=== PATIENT | female | born 1990 | race Caucasian/White ===

== ENCOUNTER 2017-05-23 20:24 | Observation (INO) | payer BC ==
[2017-05-23] MEDS ORDERED: fentaNYL 100 MCG/2 ML INJ IVP ONE (20:52)
[2017-05-23] MEDS ORDERED: ONDANSETRON 4 MG/2 ML VIAL IVP ONE (20:52)
[2017-05-23] MEDS ORDERED: NS 1,000 ML IV ONE (20:52)
--- NOTE | 2017-05-23 20:58 | EDPHY ---
H & P Time Seen by Provider: 05/23/17 20:45 HPI/ROS: CHIEF COMPLAINT: Abdominal pain HISTORY OF PRESENT ILLNESS: The patient is a 26-year-old female who presents emergency department right lower quadrant abdominal pain. She noticed her pain yesterday. It was mild cramping sensation. Today it slowly worsened. It has been persistent and it does not radiate. She describes it as moderate. She has had no vaginal discharge. She has an IUD in place. She denies any dysuria or frequency. No hematuria. No flank pain. REVIEW OF SYSTEMS: My complete review of systems is negative except as mentioned in the HPI. Past Medical/Surgical History: Colon polyps, UTI Past surgical history: Negative Social history: The patient smokes marijuana. She uses alcohol occasionally Smoking Status: Never smoked Physical Exam: Vitals noted. Afebrile. GENERAL: Well-appearing, in no acute distress, alert. HEENT: Eyes normal to inspection, normal pharynx, no signs of dehydration. NECK: No thyromegaly, no lymphadenopathy, supple. RESPIRATORY: Clear to auscultation bilaterally, no rales, rhonchi or wheezing. CVS: Regular rate and rhythm, no rubs, murmurs, or gallops. ABDOMEN: Soft, right lower quadrant tenderness to palpation with no rebound or guarding, nondistended, no organomegaly. No palpable mass. BACK: Normal to inspection, no CVA tenderness. SKIN: Normal color, no rash, warm, dry. No pallor. EXTREMITIES: No pedal edema, no calf tenderness, no Homans sign or cords, no joint swelling. NEURO/PSYCH: Alert and oriented, normal mood and affect, normal motor sensory exam. Constitutional: Initial Vital Signs Temperature (C) 36.6 C 05/23/17 20:25 Heart Rate 94 05/23/17 20:25 Respiratory Rate 16 05/23/17 20:25 Blood Pressure 130/80 H 05/23/17 20:25 O2 Sat (%) 99 05/23/17 20:25 O2 Delivery Mode Room Air Allergies/Adverse Reactions: Sulfa (Sulfonamide Antibiotics) Allergy (Verified 05/23/17 20:29) Home Medications: Medication Instructions Recorded NK [No Known Home Meds] 05/23/17 Medical Decision Making ED Course/Re-evaluation: In the emergency department I discussed possible etiologies with the patient. I answered all her questions. IV was placed. Laboratory studies were obtained. Patient was given fentanyl 50 mcg IV for pain control. She is given Zofran 4 mg IV for nausea. An ultrasound of the right lower quadrant and pelvis was ordered. The patient's white count is mildly elevated at 11. The patient's chemistry panel is unremarkable. is negative. UA did not show any signs of infection. 2155: I reviewed the ultrasound images with Dr. Alvaro Colón. Patient has a small ovarian cyst on the right. No torsion. The patient has a positive appendicitis. Patient was given Invanz 1 g IV. I discussed the case with Dr. Rodriguez who will admit. Differential Diagnosis: My differential includes but is not limited to ovarian cyst, ovarian torsion, , ectopic , appendicitis, volvulus, intussusception, hernia, urinary tract infection pyelonephritis, kidney stone - Data Points Laboratory Results: Laboratory Results 05/23/17 20:40 05/23/17 20:40 05/23/17 05/23/17 05/23/17 20:40 20:40 20:40 WBC 11.13 10^3/uL H 10^3/uL (3.80-9.50) RBC 5.23 10^6/uL 10^6/uL (4.18-5.33) Hgb 15.2 g/dL g/dL (12.6-16.3) Hct 43.6 % % (38.0-47.0) MCV 83.4 fL fL (81.5-99.8) MCH 29.1 pg pg (27.9-34.1) MCHC 34.9 g/dL g/dL (32.4-36.7) RDW 13.3 % % (11.5-15.2) Plt Count 208 10^3/uL 10^3/uL (150-400) MPV 10.7 fL fL (8.7-11.7) Neut % (Auto) 79.1 % H % (39.3-74.2) Lymph % (Auto) 12.3 % L % (15.0-45.0) [place] % (Auto) 7.5 % % (4.5-13.0) Eos % (Auto) 0.7 % % (0.6-7.6) Baso % (Auto) 0.1 % L % (0.3-1.7) Nucleat RBC Rel Count 0.0 % % (0.0-0.2) Absolute Neuts (auto) 8.81 10^3/uL H 10^3/uL (1.70-6.50) Absolute Lymphs (auto) 1.37 10^3/uL 10^3/uL (1.00-3.00) Absolute Monos (auto) 0.83 10^3/uL H 10^3/uL (0.30-0.80) Absolute Eos (auto) 0.08 10^3/uL 10^3/uL (0.03-0.40) Absolute Basos (auto) 0.01 10^3/uL L 10^3/uL (0.02-0.10) Absolute Nucleated RBC 0.00 10^3/uL 10^3/uL (0-0.01) Immature Gran % 0.3 % % (0.0-1.1) Immature Gran # 0.03 10^3/uL 10^3/uL (0.00-0.10) Sodium 141 mEq/L mEq/L (135-145) Potassium 4.1 mEq/L mEq/L (3.5-5.2) Chloride 108 mEq/L mEq/L (97-110) Carbon Dioxide 21 mEq/l L mEq/l (22-31) Anion Gap 12 mEq/L mEq/L (8-16) BUN 10 mg/dL mg/dL (7-23) Creatinine 0.7 mg/dL mg/dL (0.6-1.0) Estimated GFR > 60 Glucose 89 mg/dL mg/dL (70-100) Calcium 10.1 mg/dL mg/dL (8.5-10.4) Beta HCG, Qual NEGATIVE Urine Color Urine Appearance Urine pH Ur Specific [place] Urine Protein Urine Ketones Urine Blood Urine Nitrate Urine Bilirubin Urine Urobilinogen Ur Leukocyte Esterase Urine RBC Urine WBC Ur Epithelial Cells Urine Bacteria Urine Glucose 05/23/17 20:32 WBC RBC Hgb Hct MCV MCH MCHC RDW Plt Count MPV Neut % (Auto) Lymph % (Auto) [place] % (Auto) Eos % (Auto) Baso % (Auto) Nucleat RBC Rel Count Absolute Neuts (auto) Absolute Lymphs (auto) Absolute Monos (auto) Absolute Eos (auto) Absolute Basos (auto) Absolute Nucleated RBC Immature Gran % Immature Gran # Sodium Potassium Chloride Carbon Dioxide Anion Gap BUN Creatinine Estimated GFR Glucose Calcium Beta HCG, Qual Urine Color PALE YELLOW Urine Appearance CLEAR Urine pH 8.0 H (5.0-7.5) Ur Specific [place] 1.001 L (1.002-1.030) Urine Protein NEGATIVE (NEGATIVE) Urine Ketones NEGATIVE (NEGATIVE) Urine Blood NEGATIVE (NEGATIVE) Urine Nitrate NEGATIVE (NEGATIVE) Urine Bilirubin NEGATIVE (NEGATIVE) Urine Urobilinogen NEGATIVE EU EU (0.2-1.0) Ur Leukocyte Esterase NEGATIVE (NEGATIVE) Urine RBC 1-3 /hpf /hpf (0-3) Urine WBC NONE SEEN /hpf /hpf (0-3) Ur Epithelial Cells TRACE /lpf /lpf (NONE-1+) Urine Bacteria TRACE /hpf H /hpf (NONE SEEN) Urine Glucose NEGATIVE (NEGATIVE) Medications Given: Discontinued Medications Fentanyl (Sublimaze) 50 mcg IVP EDNOW ONE Stop: 05/23/17 20:53 Last Admin: 05/23/17 21:01 Dose: 50 mcg Sodium Chloride (Ns) 1,000 mls @ 0 mls/hr IV ONCE ONE; Wide Open PRN Reason: Protocol Stop: 05/23/17 20:53 Last Admin: 05/23/17 21:00 Dose: 1,000 mls Ondansetron HCl (Zofran) 4 mg IVP EDNOW ONE Stop: 05/23/17 20:53 Last Admin: 05/23/17 21:01 Dose: 4 mg Departure - Departure Disposition: [facility] Inpatient Acute Clinical Impression: Abdominal pain Qualifiers: Abdominal location: right lower quadrant Qualified Code(s): R10.31 - Right lower quadrant pain Appendicitis Qualifiers: Appendicitis type: acute appendicitis Acute appendicitis type: other Qualified Code(s): K35.89 - Other acute appendicitis Condition: Good Instructions: Abdominal Pain (ED) Referrals: NONE *PRIMARY CARE P,. [Primary Care Provider] - As per Instructions
[2017-05-23 21:03] LABS: PLATELET COUNT 208 10^3/uL (150-400)
[2017-05-23] MEDS ORDERED: ERTAPENEM 1 GM VIAL IVP ONE (21:59)
[2017-05-23] MEDS ORDERED: LR 1,000 ML IV ONE (23:06)
--- NOTE | 2017-05-23 23:57 | PDANEPAE ---
ANE History of Present Illness 26 year old female for [employer]. ANE Past Medical History - Cardiovascular History Hx Hypertension: No Hx Arrhythmias: No Hx Chest Pain: No Hx Coronary Artery / Peripheral Vascular Disease: No Hx CHF / Valvular Disease: No Hx Palpitations: No - Pulmonary History Hx COPD: No Hx Asthma/Reactive Airway Disease: No Hx Recent Upper Respiratory Infection: No Hx Oxygen in Use at Home: No Hx Sleep Apnea: No - Endocrine History Hx Diabetes: No Hypothyroid: No Hyperthyroid: No Obesity: no - Renal History Hx Renal Disorders: No - Liver History Hx Hepatic Disorders: No - Neurological & Psychiatric Hx Hx Neurological and Psychiatric Disorders: No - Cancer History Hx Cancer: No - Congenital Disorder History Hx Congenital Disorders: No - GI History GERD: no Hx Gastrointestinal Disorders: No - Chronic Pain History Chronic Pain: No ANE Review of Systems Review of systems is: negative Review of Systems: - Exercise capacity Exercise capacity: >=4 METS ANE Patient History - Allergies Allergies/Adverse Reactions: Sulfa (Sulfonamide Antibiotics) Allergy (Verified 05/23/17 22:08) Other-Enter Comments - Home Medications Home medications: home medication list seen and reviewed Home Medications: Levonorgestrel [Kyleena] 1 each IY ONCE 05/23/17 [Last Taken Unknown] Multivitamins [Multivitamin (*)] 1 each PO DAILY 05/23/17 [Last Taken 05/14/17 08:00] - NPO status NPO Status: no food or drink >8 hours NPO Since - Liquids (Date): 05/23/17 NPO Since - Liquids (Time): 21:30 NPO Since - Solids (Date): 05/23/17 NPO Since - Solids (Time): 17:30 - Anes Hx Anes Hx: no prior problems - Smoking Hx Smoking Status: Never smoked Marijuana use: Yes - Alcohol Use Alcohol Use: Rarely - Family Anes Hx Family Anes Hx: neg - N/A ANE Labs/Vital Signs - Labs Result Diagrams: 05/23/17 20:40 05/23/17 20:40 - Vital Signs Vital Signs: reviewed preoperatively; see RN documention for details Blood Pressure: 117/74 Heart Rate: 62 Respiratory Rate: 16 O2 Sat (%): 98 Height: 160.02 cm Weight: 52.163 kg ANE Physical Exam - Airway Neck exam: FROM Mallampati Score: Class 1 Mouth exam: normal dental/mouth exam - Pulmonary Pulmonary: no respiratory distress - Cardiovascular Cardiovascular: regular rate and rhythym - ASA Status ASA Status: I ANE Anesthesia Plan Anesthesia Plan: general endotracheal anesthesia Total IV Anesthesia: No
[2017-05-23] MEDS ORDERED: PROPOFOL/EMULSION 500 MG/50 ML BOTTLE IV ONE (23:59)
[2017-05-24] MEDS ORDERED: BUPIVACAINE 0.5% 30 ML SDV ONE (00:01)
[2017-05-24] MEDS ORDERED: ROCURONIUM 50 MG/5 ML VIAL ONE (00:02)
[2017-05-24] MEDS ORDERED: LIDOCAINE 2% 5 ML SDV ONE (00:02)
[2017-05-24] MEDS ORDERED: fentaNYL 100 MCG/2 ML INJ ONE (00:02)
[2017-05-24] MEDS ORDERED: ONDANSETRON 4 MG/2 ML VIAL ONE (00:22)
[2017-05-24] MEDS ORDERED: DEXAMETHASONE 4 MG/ML VIAL ONE (00:22)
[2017-05-24] MEDS ORDERED: PROPOFOL/EMULSION 500 MG/50 ML BOTTLE IV ONE (00:25)
[2017-05-24] MEDS ORDERED: SUGAMMADEX SODIUM 200 MG/2 ML VIAL IVP ONE (00:32)
[2017-05-24] MEDS ORDERED: KETOROLAC 30 MG/1 ML SDV ONE (00:34)
[2017-05-24] MEDS ORDERED: fentaNYL 100 MCG/2 ML INJ IVP PRN (00:40)
[2017-05-24] MEDS ORDERED: HYDROmorphONE/DILAUDID 1 MG/ML INJ IVP PRN (00:40)
[2017-05-24] MEDS ORDERED: NALOXONE HCL 0.4 MG/ML INJ IVP PRN (00:40)
[2017-05-24] MEDS ORDERED: MEPERIDINE 25 MG/ML SYR IVP PRN (00:40)
[2017-05-24] MEDS ORDERED: LR 500 ML IV PRN (00:40)
[2017-05-24] MEDS ORDERED: HYDROCODONE/APAP 5/325 TAB PO PRN ×2 (00:40→00:52)
[2017-05-24] MEDS ORDERED: ONDANSETRON 4 MG/2 ML VIAL IVP PRN ×2 (00:40→00:52)
--- NOTE | 2017-05-24 00:53 | POSTOPPROG ---
Post Op Note Date of Operation: 05/24/17 Surgeon: Lo Rodriguez Anesthesiologist: wilder Anesthesia: GET(General Endotracheal) Pre-op Diagnosis: acute appendicitis Post-op Diagnosis: same Indication: 26 yo with acute appy Procedure: lap appy Findings: inflamed appendix Inf/Abcess present in the surg proc area at time of surgery?: No EBL: Minimal Specimen(s): appendix
--- NOTE | 2017-05-24 01:05 | POSTANESTH ---
Post Anesthetic Evaluation Cardiovascular Status: Normal, Stable, Similar to Pre-Op Cond Respiratory Status: Normal, Stable, Similar to Pre-op Cond. Level of Consciousness/Mental Status: Can Participate in Eval, Alert and Oriented Pain Control: Adequate, Prn Tx Ordered Nausea/Vomiting Control: Adequate, Prn Tx Ordered Complications Possibly Related to Anesthesia: None Noted
--- NOTE | 2017-05-24 01:25 | GHP ---
[f rep st] HISTORY AND PHYSICAL DATE OF ADMISSION: 05/23/2017 REFERRING PHYSICIAN: Debbie Ngo MD CHIEF COMPLAINT: Appendicitis. HISTORY OF PRESENT ILLNESS: The patient is a 26-year-old woman, who has had abdominal pain for 24-48 hours. Initially, it was mild and cramping associated with bloating, and she thought she had to pas s gas. Today, it became worse and became more sharp in the right lower quadrant. She presented to [facility] emergency room. Her white count was elevated. Ultrasound showed a thickened appendix. PAST MEDICAL HISTORY: None. PAST SURGICAL HISTORY: None. SOCIAL HISTORY: She is a massage therapist. She uses alcohol on occasion. She smokes marijuana. S he does not use tobacco products. FAMILY HISTORY: Noncontributory. REVIEW OF SYSTEMS: A 10-point review of systems negative except per HPI. PHYSICAL EXAMINATION: VITAL SIGNS: 36.6, 94, 130/80, 16, 99%. GENERAL: Pleasant, thin, well-rocky shed woman sitting on exam table. HEENT: Normocephalic. No gross hearing deficits. Mucous membran es moist. Pupils equal and round. No scleral icterus. LUNGS: Clear to auscultation bilaterally. No increased work of breathing. CARDIAC: Regular rate. No peripheral edema. ABDOMEN: Distended. Bowel sounds present. She is tender in the right lower quadrant. MUSCULOSKELETAL: Normal nails. SKIN: Warm and dry. PSYCH: Mood and affect normal. NEURO: Grossly intact. LABORATORY DATA: Results reviewed. I personally reviewed the results of her lab work, as well as he r ultrasound. IMPRESSION AND PLAN: The patient is a 26-year-old with acute appendicitis. I will take her to the perating room for a laparoscopic appendectomy. The risks and benefits, including, but not limited to , stroke, heart attack, , blood clots, infection, bleeding, damage to bowel or bladder were disc ussed. She had her questions answered to her satisfaction and signed the informed consent. /[id number]/MODL
[2017-05-24 02:16] VITALS: RESP 16
[2017-05-24] MEDS ORDERED: LR 1,000 ML IV ONE (02:30)
--- NOTE | 2017-05-24 04:45 | GOP ---
[f rep st] OPERATIVE REPORT DATE OF OPERATION: 05/24/2017 SURGEON: Lo Rodriguez MD ANESTHESIA: General. ANESTHESIOLOGIST: Jagdish Sifuentes MD. PREOPERATIVE DIAGNOSIS: Acute appendicitis. POSTOPERATIVE DIAGNOSIS: Acute appendicitis. PROCEDURE PERFORMED: Laparoscopic appendectomy. FINDINGS: Inflamed appendix. SPECIMENS: Appendix. ESTIMATED BLOOD LOSS: 5 cc. INDICATIONS: The patient is a 26-year-old with abdominal pain, inflamed appendix, and elevated white blood cell count. DESCRIPTION OF PROCEDURE: Patient was brought into the operating room, placed supine on the table, a nd general anesthesia was administered. Her abdomen was prepped and draped in the usual sterile [facility] ion. I infiltrated all sites with 0.5% Marcaine prior to making incisions. I made an incision at he r umbilicus. I elevated it. I inserted the Veress needle. It passed the hanging drop test. Her ab domen insufflated easily to a pressure of 15 mmHg. I placed a 5 mm trocar with a camera at this site . There were no injuries from Veress needle placement. Under direct vision, I placed a 5 mm suprapu bic trocar and a 10 mm trocar in the left lower quadrant. I elevated her appendix. I had to divide some omentum over it. I divided the mesoappendix with the Harmonic Scalpel. There was also 1 attach ment to the small bowel that I divided with scissors. I then divided the base of the appendix with a n Endo-MYRIAM 45 white load. I placed the appendix in an EndoCatch bag and retrieved it via the 10 mm t rocar. It had to be dilated slightly to accommodate the enlarged appendix. Staple line was intact. There were no injuries noted. I removed the trocars and allowed the abdomen to desufflate. The fas tabby at the 10 mm trocar site was closed with 0 Vicryl. Skin closed with 4-0 Monocryl. Dermabond christian lied. She was awakened in the operating room, extubated, transferred to PACU in stable condition. /[id number]/MODL
[2017-05-24 08:32] VITALS: BP 102/61; PULSE 51; TEMP 97; O2SAT 96
--- NOTE | 2017-05-24 11:46 | SOAPPROG ---
SOAP Progress Note Assessment/Plan: Assessment/plan: 26yo F s/p lap appy for acute appendicitis Path pending Pain controlled without Rx Passnig flatus Tolerating regular diet Dispo: DC home today. F/u in 2 weeks. Avoid heavy lifting, pushing or pulling x 2 weeks. Call with worsening symptoms, question or concerns S: feeling well this morning. pain resolved. O: Lying in bed, comfortable, no acute distress No increased work of breathing Positive bowel sounds throughout, soft, nondistended, nontender. Incisions clean, dry and intact without evidence of infection Objective: Vital Signs Temp Pulse Resp BP Pulse Ox 36.1 C 51 L 16 102/61 96 05/24/17 08:00 05/24/17 08:00 05/24/17 08:00 05/24/17 08:00 05/24/17 08:00 05/23/17 05/24/17 05/25/17 05:59 05:59 05:59 Intake Total 1770 Output Total 10 300 Balance 1760 -300 ICD10 Worksheet Patient Problems: Problems Problem Status Onset Abdominal pain Acute Appendicitis Acute
== END 2017-05-24 10:30 | disposition home or self-care (01) ==
LOC: FOB 05-24 02:25
PROVIDERS: ADMIT Surgery; ATTEND Surgery
PROC: 0DTJ4ZZ Resection of Appendix, Percutaneous Endoscopic Approach (ICD-10-PCS; principal; 2017-05-23)
DX: K35.89 Other acute appendicitis (principal); Z97.5 Presence of (intrauterine) contraceptive device
CPT/HCPCS: 44970; 76705; 76856; G0378; 96374; J1100; J1335; J1885; J2405; J2704; J3010